=== PATIENT | female | born 1980 | race Caucasian/White ===

== ENCOUNTER 2020-05-15 08:10 | Outpatient (CLI) | payer BC, OTHER, SELFPAY ==
[2020-05-15 09:04] LABS: Basophils Percent Auto 0.8 % (0.2-1.2); Eosinophils Absolute Auto 0.1 K/mm3 (0-0.3); Eosinophils Percent Auto 1.7 % (0-4.4); Hematocrit 39.4 % (37.0-47.0); Hemoglobin 12.9 g/dL (12.0-15.0); Immature Granulocyte Absolute 0.01 K/mm3 (0.00-0.031); Immature Granulocyte Percent A 0.2 % (0-0.5); Lymphocytes Absolute Auto 1.87 K/mm3 (0.9-3.2); Mean Corpuscular HGB Conc 32.7 g/dl (32-36); Mean Corpuscular Hemoglobin 29.5 pg (26-34); Mean Corpuscular Volume 90.2 fl (80-100); Mean Platelet Volume 10.7 fl (7.4-10.4); Monocytes Absolute Auto 0.3 K/mm3 (0.1-0.6); Monocytes Percent Auto 6.5 % (2.6-8.5); Neutrophils Absolute Auto 2.5 K/mm3 (1.3-6.7); Neutrophils Percent Auto 51.8 % (45.5-73.1); Platelet Count Result 243 k/mm3 (150-375); Red Blood Count 4.37 M/mm3 (4.2-5.4); Red Cell Distribution Width 11.1 % (11.5-14.5); White Blood Count 4.8 K/mm3 (4.5-10.0)
[2020-05-15 12:26] LABS: Alanine Aminotransferase 17 U/L (4-35); Albumin Level 4.3 g/dL (3.5-5.1); Alkaline Phosphatase 69 U/L (38-126); Anion Gap 6 mmol/L (8-16); Aspartate Amino Transferase 26 U/L (14-36); Bilirubin,Total 0.6 mg/dL (0.2-1.3); Blood Urea Nitrogen 10 mg/dL (7-17); Calcium 9.4 mg/dL (8.4-10.2); Carbon Dioxide 30 mmol/L (22-30); Chloride 104 mmol/L (98-107); Estimated Glomerular Filt Rate > 60; Glucose 91 mg/dL (65-105); Sodium 140 mmol/L (137-145)
[2020-05-15 12:39] LABS: Iron 103 ug/dL (37-170)
[2020-05-15 12:52] LABS: Percent Iron Saturation 34 % (20-50)
[2020-05-15 13:38] LABS: Folic Acid > 20.0 ng/mL (2.76->20)
[2020-05-21 14:00] LABS: Gliadin AB, IgG 7 Units (<20); Reticulin IgA Negative (Negative); TTG IGA AB 1 U/mL (<4)
== END 2020-05-15 08:11 | disposition home or self-care (01) ==
LOC: ANHLAB 08:20
DX: K50.90 Crohn's disease, unspecified, without complications (principal)
CPT/HCPCS: 36415; 80053; 82607; 82728; 82746; 83516; 83540; 83550; 85025; 86255

== ENCOUNTER 2020-05-17 08:07 | Outpatient (CLI) | payer BC, OTHER, SELFPAY ==
[2020-05-20 05:25] LABS: Fecal Fat, Ql Normal (Normal)
[2020-05-24 21:13] LABS: Calprotectin, Stool 9 mcg/g
== END 2020-05-17 08:08 | disposition home or self-care (01) ==
DX: K50.90 Crohn's disease, unspecified, without complications (principal)
CPT/HCPCS: 82705; 83993

== ENCOUNTER 2021-03-02 09:21 | Emergency (ER) | payer BC, OTHER, SELFPAY ==
--- NOTE | ~2021-03-02 | XR_ITS ---
EXAMINATION: XR finger 4th RT min 2V DATE: 03/02/2021 11:00 INDICATION: Laceration at the right fourth digit TECHNIQUE: Dorsal palmar, lateral and 2 oblique views of the right fourth digit were obtained COMPARISON: None FINDINGS: Alignment is normal. No fracture. Joint spaces are normal. Soft tissues are unremarkable. No radiopaq ue foreign bodies. IMPRESSION: 1. No osseous abnormality or radiopaque foreign body. Reviewed, dictated and finalized at location A. [employer]
[2021-03-02 09:30] VITALS: BP 115/80; PULSE 106; RESP 16; TEMP 36.8; O2SAT 99
[2021-03-02] MEDS: TETANUS,DIPHTHERIA,AC PERTUSSIS ADULT (0.5 ML) BOOSTRIX IM (10:30)
--- NOTE | 2021-03-02 10:37 | ED.WOUNDLAC ---
HPI - Wound/Laceration General Chief Complaint: Wound/Laceration Stated Complaint: laceration Time Seen by Provider: 03/02/21 09:29 Source: patient Mode of arrival: ambulatory Limitations: no limitations History of Present Illness HPI narrative: This is a 41 year old female that presents to the ER for laceration to the right 4th finger sustained just prior to arrival. Reports the mirror in her daughter's room was falling down. Reports she tried to catch it. She sustained a laceration from the glass on the mirror. She is not up-to-date on tetanus. Denies decreased ROM or numbness. Related Data Home Medications Medication Instructions Recorded Confirmed letrozole mg 03/02/21 Allergies Allergy/AdvReac Type Severity Reaction Status Date / Time escitalopram [From Lexapro] Allergy Unknown Verified 03/02/21 10:20 Iodinated Contrast Media Allergy Hives Verified 03/02/21 10:20 Review of Systems Review of Systems: CONSTITUTIONAL: Denies fever SKIN: Reports laceration MUSCULOSKELETAL: Denies joint pain, or myalgia. NEUROLOGIC: Denies numbness All systems reviewed & are unremarkable except as noted in HPI and below PMFSH Past Medical History Medical History (Updated 03/02/21 @ 11:31 by Zayra Gonzalez PA-C) History of breast cancer Social History Social History (Updated 03/02/21 @ 10:39 by Zayra Gonzalez PA-C) Smoking status: Never smoker Exam Narrative: GENERAL: Well-appearing, well-nourished, and in no acute distress. HEAD: Normocephalic, atraumatic. EYES: EOMI. EXTREMITIES: Normal range of motion. No edema or obvious deformity. Base of the right 4th finger with 2cm linear laceration into subcutaneous tissue. Normal radial pulses. Normal sensation SKIN: Warm, dry, no rash. NEURO: No focal deficits. Alert and oriented x3. PSYCH: Normal mood and affect Course Vital Signs Vital signs: Vital Signs Temperature 98.2 F 03/02/21 09:30 Pulse Rate 106 H 03/02/21 09:30 Respiratory Rate 16 03/02/21 09:30 Blood Pressure 115/80 03/02/21 09:30 Pulse Oximetry 99 03/02/21 09:30 Temperature 98.2 F 03/02/21 09:30 Pulse Rate 106 H 03/02/21 09:30 Respiratory Rate 16 03/02/21 09:30 Blood Pressure 115/80 03/02/21 09:30 Pulse Oximetry 99 03/02/21 09:30 Procedures Laceration Laceration 1: Date: 03/02/21 Time: 11:30 Site: hand Side (If applicable): right Size (cm): 2 Description: linear Depth: simple, single layer Local Anesthetic: lidocaine 1% Amount of anesthesia used (mL): 4 Pre-repair: wound explored and irrigated ====== Skin Level ====== Skin layer closed with: nylon Size (cm): 4-0 Number of sutures: 2 Technique: simple, interrupted ====== Subcutaneous Layer ====== ====== Muscle Layer ====== ====== Tendon Layer ====== MDM - Wound/Laceration MDM Narrative Medical decision making narrative: Patient presents to the ER for laceration to the right fourth finger sustained just prior to arrival. Laceration was irrigated and closed with sutures. Patient was updated on tetanus. Patient was educated on wound care. Right finger x-rays without acute osseous abnormalities or radiopaque foreign body. Patient is stable and felt appropriate for outpatient evaluation. She is to follow-up with his primary doctor. She was given warnings to return to the ER Imaging Data Radiologist's impression: ITS Impressions Finger X-Ray 03/02/21 11:03 IMPRESSION: 1. No osseous abnormality or radiopaque foreign body. Critical Care Time Critical Care Time Critical Care Time: No Discharge Plan Discharge Clinical Impression: Laceration Patient Disposition: Home, Self-Care Condition: Stable Instructions: Care For Your Stitches (ED), Laceration (ED) Additional Instructions: Return to the emergency department if you experience fever, redness or swe
[2021-03-02] MEDS: ACETAMINOPHEN 500 MG TABLET 1000 MG PO (11:35)
[2021-03-02 11:55] VITALS: BP 105/67; PULSE 90; RESP 18; O2SAT 100
== END 2021-03-02 12:00 | disposition home or self-care (01) ==
PROVIDERS: Emergency Provider Emergency Medicine
DX: S61.214A Laceration without foreign body of right ring finger without damage to nail, initial encounter (principal); Z85.3 Personal history of malignant neoplasm of breast; W25.XXXA Contact with sharp glass, initial encounter; Z23 Encounter for immunization
CPT/HCPCS: 12001; 73140; 90471; 90715; 99283; A9270

== ENCOUNTER 2022-01-07 17:30 | Emergency (ER) | payer BC, OTHER, SELFPAY ==
--- NOTE | ~2022-01-07 | XR_ITS ---
EXAM: XR foot LT min 3V DATE: 01/07/2022 17:51 HISTORY: pain in foot, unknown if injured, medial pain . COMPARISON: None available. FINDINGS: Normal mineralization. No fracture or dislocation. No lytic or blastic lesion. Joint space s are maintained. No erosion or periosteal change. Soft tissues within normal limits. IMPRESSION: No acute osseous finding in the left foot. Reviewed, dictated and finalized at location K.
--- NOTE | 2022-01-07 17:38 | ED.LOWEXIN ---
HPI - Extremity Injury (Lower) General Chief Complaint: Extremity Injury, Lower Stated Complaint: lt foot injury Time Seen by Provider: 01/07/22 17:38 Source: patient and RN notes reviewed Mode of arrival: ambulatory Limitations: no limitations History of Present Illness HPI Narrative: 41-year-old female presents concern for left foot pain. She reports today she slipped on a walnut rolling her ankle. She denies any immediate pain. Reports however later after her walk she began having significant pain 5-6/10. She reports she took Aleve which helped a little bit. She reports foot pain when she wiggles her toe or extends or flexes her ankle. She denies open skin, redness, warmth, bruising MD complaint: foot injury Related Data Home Medications Medication Instructions Recorded Confirmed letrozole 2.5 mg tablet mg 03/02/21 11/21/21 Allergies Allergy/AdvReac Type Severity Reaction Status Date / Time escitalopram [From Lexapro] Allergy Unknown Verified 11/21/21 15:34 Iodinated Contrast Media Allergy Hives Verified 11/21/21 15:34 Review of Systems Review of Systems: CONSTITUTIONAL: Denies malaise, chills, sweats, or fever. SKIN: Denies rash or itching, open skin, laceration, abrasion, redness, warmth, swelling. MUSCULOSKELETAL: Reports left foot pain NEUROLOGIC: Denies numbness, weakness All systems reviewed & are unremarkable except as noted in HPI and below PMFSH Past Medical History Medical History History of breast cancer radiation/ chemotherapy / double mastectomy Surgical History Surgical History S/P mastectomy, bilateral right breast 2011/ left breast 2019 Family History Family History Grandparent Acute myocardial infarction Malignant lymphoma Other Diabetes mellitus Social History Social History (Updated 11/21/21 @ 15:35 by WILIAN Rosales) Smoking status: Never smoker Alcohol intake: never Substance use: never Substance use type: does not use Additional living arrangements comments: Additional occupation/education comments: admin Gender identity (if verbalized by the patient): Female Sexual Orientation (if Verbalized by the Patient): Straight or Heterosexual Comments At time of signature, agree with nursing past medical, surgical, social and family history. There is no relevant family history pertinent to the presenting complaint Exam Narrative: GENERAL: Well-appearing, well-nourished, and in no acute distress. HEAD: Normocephalic, atraumatic. EYES: PERRLA, conjunctivae clear NECK: Supple. CHEST: Speaks in full sentences. No respiratory distress. HEART: Regular rate and rhythm. Normal and equal peripheral pulses. EXTREMITIES: Left ankle, foot, digits have normal strength and sensation, grossly normal range of motion. No edema or ecchymosis. 5/5 strength with digit and ankle flexion and extension. Normal sensation with sensitivity to light touch and pain. Medial dorsal tenderness. No open wounds, no skin tenting, no devitalized tissue or atrophy, no trophic changes, no obvious deformity, alignment normal, nearby joints and structures intact. Distal pulses palpable and equal bilaterally, skin warm, dry, pink. Capillary refill less than 3 seconds. SKIN: Warm, dry, no rash. NEURO: Alert and oriented x3. PSYCH: Normal mood and affect Course Course Emergency Course: Patient is aware of diagnosis, understands and agrees to treatment plan. Anticipatory guidance given. Patient agrees to follow-up as directed and is aware of reasons to seek care at the emergency department. Portions of this record may have been created with voice recognition software Level of Care: Express Care Visit Vital Signs Vital signs: Reviewed. MDM - Extremity Injury (Lower) MDM Narrative Medical decision making narr
[2022-01-07 17:40] VITALS: BP 138/85; PULSE 74; RESP 20; TEMP 37.5; O2SAT 100
== END 2022-01-07 18:24 | disposition home or self-care (01) ==
PROVIDERS: Emergency Provider Nurse Practitioner; PCP Hospitalist
DX: S93.602A Unspecified sprain of left foot, initial encounter (principal); X50.9XXA Other and unspecified overexertion or strenuous movements or postures, initial encounter; Z85.3 Personal history of malignant neoplasm of breast; Z92.21 Personal history of antineoplastic chemotherapy; Z92.3 Personal history of irradiation; Z90.13 Acquired absence of bilateral breasts and nipples
CPT/HCPCS: 73630; 99212; G0463

== ENCOUNTER 2022-06-30 00:23 | Day surgery (SDC) | payer BC, OTHER, SELFPAY ==
[2022-06-15 15:22] VITALS: BMI 22.1
--- NOTE | 2022-06-15 15:40 | PC.NURSE ---
Report to the Outpatient Waiting Room, entrance under the green pavilion located off [facility], at time 1215 on date 06/30/22_. Planned Procedure Time: 1415. Time changes happen often and if your time is changed the preop area will call you the afternoon before. - You and your visitor will be asked to self-screen and do not enter if you have any COVID symptoms. - Only one visitor is requested with a max of two and NO children visitors are allowed at this time. - The patient visitor may be requested to leave or wait in car when not with patient due to distancing restrictions. - A mask is optional within the hospital at this time. Patients may have clear liquids (water, carbonated beverages, clear teas, apple juice) until 3 hours prior to surgery with a maximum of 20 ounces. - No food from midnight until time of surgery - Infants may have breast milk until 4 hours before surgery, formula 6 hours prior to surgery. - Children will be allowed to drink immediately following surgery. If applicable, please bring a bottle or sippy cup to assist with drinking. Juice, water, soda, and popsicles are readily available. For infants on formula, please bring formula the day of surgery. Pacifiers are allowed. Take the following medications with a SIP of water the morning of surgery: _duloxetine___ DO NOT STOP ANY OF YOUR OTHER PRESCRIPTION MEDICATIONS PRIOR TO SURGERY ?EXCEPT THE FOLLOWING Medications to discontinue per physician _vitamins Date to take last dose_06/27/22____ Please no make-up, nail georgian, hairspray, perfume, deodorant, or body powder the day of surgery. No jewelry (including any body piercings) or valuables the day of surgery, leave them at home. Please take a shower or bath the night before, or the morning of, surgery with an antibacterial soap. Wear comfortable, loose fitting clothing. Children are encouraged to wear pajamas. - Jewelry must be removed prior to entering the operating room. Rings and piercings that are not removed may be cut off. - The hospital will not accept responsibility for valuables. - Please leave all valuables, including medications, at home the day of surgery. If you are going home after surgery, a licensed warehouse delivery driver must drive you home. - NO public transportation without another adult if you receive anesthesia. - We recommend that an adult stay with you for 24 hours following discharge. - We also recommend that you do not drive, make important decision, drink alcoholic beverages, or take any drugs that were not prescribed by your health care provider for at least 24 hours after your discharge time. For Pediatric surgeries, we recommend two adults accompany the child home. Follow any additional instructions given to you from your surgeon. If you or anyone in your household have experienced Covid symptoms in the past week, please notify your surgeon or the nurse liaison at the phone number below for possible testing. Telephone instructions given to Dona Mcnallyand asked if any additional questions and then verbalized understanding. Patient advised to call surgeon office or pre surgery nurse liaison [phone] if any additional questions.
[2022-06-30] VITALS (9 sets, daily range): BP systolic 95–116; BP diastolic 55–67; PULSE 62–85; RESP 14–18; TEMP 36.4; O2SAT 98–100
--- NOTE | 2022-06-30 10:07 | WPDANESEPPF ---
Anes - Initial Pre Proc Eval Procedure: Operation Date: 06/30/22 14:15 Proposed Procedures p Laparoscopic Bilateral Salpingo-oophorectomy - Randy Zavala MD Date/Time: 06/30/22 10:07 Surgeon: Randy Zavala MD Pre Op Diagnosis: Breast Ca Patient Data Age: 42 Gender: F Height: 1.57 m Weight: 55 kg Allergies Allergy/AdvReac Type Severity Reaction Status Date / Time escitalopram [From Lexapro] Allergy Intermediate Anxiety Verified 06/30/22 12:47 Iodinated Contrast Media Allergy Intermediate Hives Verified 06/30/22 12:47 Home Medications Medication Instructions Recorded Confirmed Type letrozole 2.5 mg tablet 2.5 mg PO DAILY 03/02/21 06/30/22 History duloxetine 30 mg capsule,delayed 60 mg PO DAILY 03/07/22 06/30/22 History release (Cymbalta) goserelin 10.8 mg subcutaneous 10.8 mg subcut ONCE 03/07/22 06/15/22 History implant zoledronic acid 4 mg intravenous See Rx Instructions .Route .COMPLEX 06/30/22 06/30/22 History solution Patient hx anesthesia problems: post op nausea/vomiting Family hx anesthesia problems: none Results Review: All pre-operative results and documents have been reviewed as part of the pre-operative evaluation. [facility]LY [facility] Past Medical History Medical History Anxiety Depression History of breast cancer radiation/ chemotherapy / double mastectomy Osteoporosis Surgical History Surgical History S/P mastectomy, bilateral right breast 2011/ left breast 2019 Family History Family History Grandparent Acute myocardial infarction Malignant lymphoma Other Diabetes mellitus Social History Social History Smoking status: Never smoker Alcohol intake: never Substance use: never Substance use type: does not use Living arrangements: with family Additional living arrangements comments: 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 Gender identity (if verbalized by the patient): Female Sexual Orientation (if Verbalized by the Patient): Straight or Heterosexual Spiritual care concerns: No Anes - Eval Final PreProcedure Day of Procedure 06/30/22 10:07 Patient weight: normal Heart: regular rate and rhythm Lungs: clear to auscultation and normal air movement Airway: Mallampati scale class II Neurological: alert and oriented Last oral intake: >/= 8 hours ASA classification: II Emergent: no Anesthetic plan: proceed Anesthesia type and monitoring: general ETT and standard monitoring Results Review: All pre-operative results and documents have been reviewed as part of the pre-operative evaluation. Informed Consent: The patient's anesthetic plan and its attendant risks and benefits were discussed with the patient/family/POA. Questions were solicited and answers provided to the satisfaction of the patient/family/POA.
--- NOTE | 2022-06-30 11:12 | PM.IMHP ---
H&P: HPI History of Present Illness Date/Time: 06/30/22 11:12 42-year-old female presents for prophylactic oophorectomy. She has a personal history of breast cancer in 2011 and 2019 in her left and right breast, and oncologist has recommended bilateral salpingo oophorectomy. We also discussed hysterectomy as she had mild prolapse symptoms but she is not at a place where she is ready to have this procedure performed at this time. Chief Complaint: Personal history of breast cancer Review of Systems Review of Systems: All systems reviewed & are unremarkable except as noted in HPI and below PMFSH Past Medical History Medical History Anxiety Depression History of breast cancer radiation/ chemotherapy / double mastectomy Osteoporosis Surgical History Surgical History S/P mastectomy, bilateral right breast 2011/ left breast 2019 Family History Family History Grandparent Acute myocardial infarction Malignant lymphoma Other Diabetes mellitus Social History Social History Smoking status: Never smoker Alcohol intake: never Substance use: never Substance use type: does not use Living arrangements: with family Additional living arrangements comments: 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 Gender identity (if verbalized by the patient): Female Sexual Orientation (if Verbalized by the Patient): Straight or Heterosexual Spiritual care concerns: No Meds Home Medications and Allergies Home Medications Medication Instructions Recorded Confirmed Type letrozole 2.5 mg tablet 2.5 mg PO DAILY 03/02/21 06/15/22 History duloxetine 30 mg capsule,delayed 90 mg PO DAILY 03/07/22 06/15/22 History release (Cymbalta) goserelin 10.8 mg subcutaneous 10.8 mg subcut ONCE 03/07/22 06/15/22 History implant Allergies Allergy/AdvReac Type Severity Reaction Status Date / Time escitalopram [From Lexapro] Allergy Intermediate Anxiety Verified 06/15/22 15:42 Iodinated Contrast Media Allergy Hives Verified 03/07/22 15:44 Exam Const: General: cooperative, healthy appearing and comfortable Resp: Effort & Inspection: normal respiratory effort Auscultation: clear to auscultation bilaterally Cardio: Rate: regular rate Rhythm: regular rhythm GI: Inspection: normal to inspection Auscultation: normal bowel sounds : External Female Exam: normal external appearance Speculum Exam - Vagina: normal appearance of the vagina Speculum Exam - Cervix: normal appearance of the cervix Bimanual exam- vagina & uterus: other ( minimal uterine prolapse) Bimanual Exam- Adnexa, other: normal adnexae Assessment and Plan Assessment and plan (1) Personal history of breast cancer: Code(s): Z85.3 - Personal history of malignant neoplasm of breast Status: Acute (2) Uterine prolapse: Code(s): N81.4 - Uterovaginal prolapse, unspecified Status: Acute Plan 1. Proceed with laparoscopic bilateral salpingo oophorectomy
--- NOTE | 2022-06-30 11:14 | WPDHPUPDATE1 ---
History and Physical Update Update Date/Time: 06/30/22 11:14 History and Physical has been reviewed, including an updated exam of the patient. There are NO changes in the patient's condition. Risks, benefits, and alternatives have been discussed and questions answered. Patient agrees to proceed with procedure.
[2022-06-30] MEDS: ACETAMINOPHEN 500 MG TABLET 1000 MG PO (12:52)
[2022-06-30] MEDS: LACTATED RINGERS 1,000 ML 30 ML IV CONT ×2 (13:02→16:02)
[2022-06-30] MEDS: KETOROLAC 15 MG/ML VIAL (*BKC) IV PUSH (13:04)
[2022-06-30] MEDS: SCOPOLAMINE 1.5 MG PATCH TRANSDERM (14:05)
--- NOTE | 2022-06-30 14:52 | P.OP_ITS ---
Procedure Note - Detailed Date of Procedure 06/30/22 Pre-op Diagnosis 1. Personal history of bilateral breast cancer 2. Elective bilateral oophorectomy Post-op Diagnosis Same Procedure Performed 1. Bilateral salpingo oophorectomy (laparoscopic) Surgeon Randy Zavala MD Anesthesia General Findings uterus tubes ovaries without abnormality on laparoscopic exam Description of Procedure patient prepped draped usual manner for this procedure. Cervical instruments were placed for uterine mobility. Abdominal trocar sites were marked and placed under direct visualization. Using the Harmonic scalpel bilaterally the infant up pelvic ligaments were cauterized and cut and the tubes were cut at the level of the uterus. The specimens were removed without difficulty through an 8mm port. Evaluation revealed no bleeding and at this point the procedure was co nsidered terminated. Gas was allowed to escape incisions approximated using 4-0 Monocryl the patient was sent cover stable condition. Estimated Blood Loss 10 Drains No Packing No Pathology Yes Complications No immediate complications Condition Stable Disposition PACU [facility] Billing Surgery - Charge Forward: Surgery Billing
[2022-06-30] MEDS: fentaNYL CITRATE INJ (*CRX) 100 MCG/2 ML VIAL 25 MCG IV PUSH ×4 (15:09→15:23)
== END 2022-06-30 17:06 | disposition home or self-care (01) ==
PROVIDERS: PCP Hospitalist; Visit Provider Obstetrics & Gynecology
PROC: (CPT 49320; principal; 2022-06-30 14:15)
DX: Z40.02 Encounter for prophylactic removal of ovary(s) (principal); Z85.3 Personal history of malignant neoplasm of breast; N81.4 Uterovaginal prolapse, unspecified; Z90.13 Acquired absence of bilateral breasts and nipples; M81.0 Age-related osteoporosis without current pathological fracture; F41.9 Anxiety disorder, unspecified; F32.A Depression, unspecified; Z92.3 Personal history of irradiation; Z92.21 Personal history of antineoplastic chemotherapy; Z79.811 Long term (current) use of aromatase inhibitors
CPT/HCPCS: 58661; 88305; A9270; J1100; J1885; J2250; J2405; J2704; J2710; J3010; J7120